=== PATIENT | female | born 1950 | race Two or more races ===

== ENCOUNTER 2019-08-28 12:48 | Day surgery (SDC) | payer OTHER ==
[2019-08-28 13:34] VITALS: BMI 35.5
[2019-08-28 14:30] VITALS: TEMP 97.9
[2019-08-28 15:16] VITALS: BP 147/65; PULSE 62
--- NOTE | 2019-08-30 16:42 | PATH ---
Surgical Pathology Report Patient Name: CHELSEY BOWSER [facility]. Rec. #: [id number] /Age/Gender: 1950 (Age: 69) / F Account: [id number] Location: [facility]-ENDOSCOPY Taken: 08/28/2019 Received: 08/29/2019 Reported: 08/30/2019 Physicians: Jay Jackson M.D. Specimen(s) Received CECAL POLYP Clinical History Colon polyp Postoperative diagnosis : diverticulosis, polyps Final Diagnosis CECAL POLYPS, POLYPECTOMY: TUBULAR ADENOMA, ONE FRAGMENT. SEPARATE FRAGMENTS OF COLONIC MUCOSA WITH REACTIVE LYMPHOID AGGREGATE. Electronically Signed Keaton Garcia M.D. Gross Description Received in formalin, labeled "cecal polyps" are 4 conklin, irregular portions of soft tissue measuring 0.2 to 0.5 cm. in greatest dimension. The specimen is submitted in toto in one cassette. RADHA/08/29/2019 kenzie/08/29/2019
== END 2019-08-28 15:16 | disposition home or self-care (01) ==
LOC: JASU-ENDO 12:48
PROVIDERS: ATTEND Internal Medicine Gastroenterology
PROC: 0DBH8ZX Excision of Cecum, Via Natural or Artificial Opening Endoscopic, Diagnostic (ICD-10-PCS; principal; 2019-08-28 13:30)
DX: Z86.010 Personal history of colon polyps (principal); D12.0 Benign neoplasm of cecum; K57.30 Diverticulosis of large intestine without perforation or abscess without bleeding; K64.8 Other hemorrhoids
CPT/HCPCS: 88305-TC

== ENCOUNTER 2019-10-09 13:40 | Day surgery (SDC) | payer OTHER ==
[2019-10-09 14:12] VITALS: TEMP 97.9; BMI 35.5
[2019-10-09 16:37] VITALS: BP 147/92; PULSE 72
--- NOTE | 2019-10-11 13:26 | PATH ---
Surgical Pathology Report Patient Name: ZOILA BOWSER [facility]. Rec. #: [id number] /Age/Gender: 1950 (Age: 69) / F Account: [id number] Location: [facility]-ENDOSCOPY Taken: 10/09/2019 Received: 10/10/2019 Reported: 10/11/2019 Physicians: Jay Jackson M.D. Specimen(s) Received CARDIA Clinical History Gastric intestinal metaplasia Postoperative diagnosis: Gastritis Final Diagnosis STOMACH, CARDIA, BIOPSY: GASTRIC CARDIAC TYPE MUCOSA WITH MODERATE CHRONIC GASTRITIS AND INTESTINAL METAPLASIA. NO DYSPLASIA IDENTIFIED. IMMUNOHISTOCHEMICAL STAIN FOR H. PYLORI IS NEGATIVE. Electronically Signed Zoila Lin M.D. Gross Description Received in formalin, labeled "biopsy cardia" are 2 conklin, irregular portions of soft tissue measuring 0.4 and 0.7 cm. in greatest dimension. The specimens are submitted in toto in one cassette. /10/10/2019 saudi10/10/2019
== END 2019-10-09 15:30 | disposition home or self-care (01) ==
LOC: JASU-ENDO 13:40
PROVIDERS: ATTEND Internal Medicine Gastroenterology
PROC: 0DB68ZX Excision of Stomach, Via Natural or Artificial Opening Endoscopic, Diagnostic (ICD-10-PCS; principal; 2019-10-09 14:00)
DX: Z98.84 Bariatric surgery status (principal); K29.50 Unspecified chronic gastritis without bleeding; K44.9 Diaphragmatic hernia without obstruction or gangrene; K31.89 Other diseases of stomach and duodenum; Z90.710 Acquired absence of both cervix and uterus
CPT/HCPCS: 88305-TC

== ENCOUNTER 2021-08-29 04:15 | Inpatient (IN) | payer OTHER ==
[2021-08-28 09:13] VITALS: BMI 34.0
[2021-08-29] MEDS ORDERED: BUPIVACAINE LIPOSOME/PF (EXPAREL) 266 MG/20 ML VIAL ONE (08:16)
[2021-08-29] MEDS ORDERED: BUPIVACAINE HCL/PF 0.5% (5MG/ML) 10 ML VIAL ONE (08:16)
[2021-08-29] MEDS ORDERED: MIDAZOLAM HCL 2 MG/2 ML SINGLE DOSE VIAL ONE ×3 (08:18→08:52)
[2021-08-29] MEDS ORDERED: ROCURONIUM BROMIDE 50 MG/5 ML SYRINGE ONE (08:52)
[2021-08-29] MEDS ORDERED: PROPOFOL 20 ML ONE ×2 (08:52)
[2021-08-29] MEDS ORDERED: ceFAZolin SODIUM 1 GM VIAL IVPB ONE (09:54)
[2021-08-29] MEDS ORDERED: DESFLURANE GAS 240 ML BOTTLE IH ONE (11:56)
[2021-08-29] MEDS ORDERED: METHYLENE BLUE 50 MG/10 ML AMPUL ONE (12:16)
[2021-08-29] MEDS ORDERED: NEOSTIGMINE METHYLSULFATE 0.5 MG/ML - 10 ML MDV ONE ×2 (14:32→14:59)
[2021-08-29] MEDS ORDERED: ALBUTEROL SO4 HFA INHALER IH PRN (14:38)
[2021-08-29] MEDS ORDERED: ACETAMINOPHEN 1000 MG/100 ML VIAL IVPB ONE (14:42)
[2021-08-29] MEDS ORDERED: LABETALOL HCL 5 MG/1 ML (100MG/20 ML VIAL) ONE (15:12)
[2021-08-29] MEDS ORDERED: oxyCODONE HCL 5 MG TABLET PO PRN (15:27)
[2021-08-29] MEDS ORDERED: LACTATED RINGERS SOLUTION 1,000 ML IV SCH (15:30)
[2021-08-29] MEDS ORDERED: ACETAMINOPHEN INJECTION 100 ML IVPB ONE (15:40)
[2021-08-29] MEDS: ACETAMINOPHEN 500 MG TABLET (FP) PO SCH ×2 (15:45→21:10)
[2021-08-29] MEDS ORDERED: cefTRIAXone SODIUM 1 GM VIAL IVPB ONE (16:30)
[2021-08-29 17:49] LABS: EPI CELLS 21 /uL (0-25.1); HYALINE CASTS 2 /uL (0-3.1); PH,URINE 5.5 (5.0-8.0); URINE APPEARANCE CLEAR; URINE BACTERIA 13 /uL (0-1359); URINE BILIRUBIN NEGATIVE (NEGATIVE); URINE COLOR YELLOW; URINE GLUCOSE (UA) NEGATIVE (NEGATIVE); URINE KETONE NEGATIVE (NEGATIVE); URINE LEUK ESTERASE TRACE (NEGATIVE); URINE NITRITE NEGATIVE (NEGATIVE); URINE PROTEIN NEGATIVE (NEGATIVE); URINE RBC 315 /uL (0-23.9); URINE UROBILINOGEN 0.2 mg/dL (0.2-1.0); URINE WBC 23 /uL (0-25.8)
[2021-08-29] MEDS: CEFTRIAXONE 1 GM in DEXTROSE 5%-WATER - 50 ML IVPB SCH (19:35)
[2021-08-29] MEDS: NITROFURANTOIN MACROCRYSTAL 50 MG CAPSULE (FP) PO SCH (21:10)
[2021-08-29] MEDS: ZOLPIDEM TARTRATE 5 MG TABLET PO PRN ×2 (22:20→22:50)
[2021-08-29] MEDS: oxyCODONE HCL 5 MG TABLET PO PRN (22:45)
[2021-08-30] MEDS: ACETAMINOPHEN 500 MG TABLET (FP) PO SCH ×4 (04:25→21:30)
[2021-08-30] MEDS ORDERED: cefTRIAXone SODIUM 1 GM VIAL ONE (09:10)
[2021-08-30] MEDS ORDERED: DEXTROSE 5%-WATER - 50 ML IVPB ONE (09:10)
[2021-08-30] MEDS: MECLIZINE HCL 12.5 MG TABLET PO SCH ×2 (09:30→09:41)
[2021-08-30] MEDS: NITROFURANTOIN MACROCRYSTAL 50 MG CAPSULE (FP) PO SCH ×3 (09:40→19:31)
[2021-08-30] MEDS: CEFTRIAXONE 1 GM in DEXTROSE 5%-WATER - 50 ML IVPB SCH (09:41)
[2021-08-30] MEDS ORDERED: busPIRone HCL 10 MG TABLET (FP) PO SCH (10:00)
[2021-08-30] MEDS ORDERED: PATIENT'S OWN MEDICATION (NON-FORMULARY) (Linaclotide [Linzess] 145 MCG Capsule) PO SCH (10:00)
[2021-08-30] MEDS ORDERED: ASPIRIN 81 MG CHEWABLE TABLETS PO SCH (10:00)
[2021-08-30] MEDS ORDERED: LOSARTAN POTASSIUM 50 MG TABLET PO SCH (10:00)
[2021-08-30] MEDS ORDERED: CYANOCOBALAMIN 1,000 MCG TABLET (FP) PO SCH (10:00)
[2021-08-30] MEDS ORDERED: PATIENT'S OWN MEDICATION (NON-FORMULARY) (Mirabegron [Myrbetriq] 25 MG Tab.Er.24h) PO SCH (10:00)
[2021-08-30] MEDS ORDERED: PANTOPRAZOLE 20 MG TABLET PO SCH (10:00)
[2021-08-30] MEDS ORDERED: LACTATED RINGERS SOLUTION 1,000 ML IV SCH (12:04)
[2021-08-30 16:10] LABS: BASO % 0.7 % (0-2.0); HEMATOCRIT 27.1 % (32.4-45.2); HEMOGLOBIN 8.7 GM/dL (10.7-15.3); LYMPH % 34.1 % (8-40); MCH 24.7 pg (25.7-33.7); MCHC 32.2 g/dl (32.0-36.0); MEAN CELL VOLUME 76.8 fl (80-96); MEAN PLT VOLUME 8.6 fl (7.5-11.1); MONO % 6.9 % (3.8-10.2); NEUT % 57.3 % (42.8-82.8); PLATELET COUNT 203 10^3/uL (134-434); RBC 3.53 M/mm3 (3.60-5.2); WHITE BLOOD COUNT 9.2 K/mm3 (4.0-10.0)
[2021-08-30 16:41] LABS: CALCIUM 8.7 mg/dL (8.5-10.1)
[2021-08-30 16:42] LABS: ALBUMIN 2.8 g/dl (3.4-5.0); BLOOD UREA NITROGEN 9.6 mg/dL (7-18); CO2 30 mmol/L (21-32); GLUCOSE,RANDOM 84 mg/dL (74-106)
[2021-08-30 16:45] LABS: SGOT/AST 18 U/L (15-37); SGPT/ALT 14 U/L (13-61)
[2021-08-30 16:47] LABS: BILIRUBIN,TOTAL 0.4 mg/dL (0.2-1)
[2021-08-30 16:48] LABS: ALK PHOS 85 U/L (45-117)
[2021-08-30 16:49] LABS: ANION GAP 3 MMOL/L (8-16); CHLORIDE 111 mmol/L (98-107); SODIUM 144 mmol/L (136-145)
[2021-08-30] MEDS ORDERED: CYCLOBENZAPRINE HCL 5 MG TABLET PO ONE (17:04)
[2021-08-30] MEDS ORDERED: LORazepam 2 MG/ML SDV VIAL IVPUSH PRN (17:04)
[2021-08-30 17:26] LABS: MAGNESIUM 1.8 mg/dL (1.8-2.4)
[2021-08-30 17:29] LABS: PHOSPHOROUS 3.2 mg/dL (2.5-4.9)
[2021-08-30] MEDS: MUPIROCIN 2% TOPICAL OINTMENT FOR DECOLONIZATION NS SCH (21:31)
[2021-08-30] MEDS: oxyCODONE HCL 5 MG TABLET PO PRN (21:31)
[2021-08-30] MEDS: ZOLPIDEM TARTRATE 5 MG TABLET PO PRN (21:31)
[2021-08-30] MEDS ORDERED: CHLORHEXIDINE GLUCONATE 4% CLEANSER FOR DECOLONIZATION TP SCH (22:00)
[2021-08-30] MEDS ORDERED: ACETAMINOPHEN 500 MG TABLET (FP) PO PRN (23:13)
[2021-08-30 23:16] LABS: BASO % 1.4 % (0-2.0); EOS % 1.5 % (0-4.5); HEMATOCRIT 28.6 % (32.4-45.2); HEMOGLOBIN 9.2 GM/dL (10.7-15.3); LYMPH % 32.5 % (8-40); MCH 24.5 pg (25.7-33.7); MCHC 32.2 g/dl (32.0-36.0); MEAN CELL VOLUME 76.2 fl (80-96); MEAN PLT VOLUME 8.1 fl (7.5-11.1); MONO % 7.1 % (3.8-10.2); NEUT % 57.5 % (42.8-82.8); PLATELET COUNT 214 10^3/uL (134-434); RBC 3.75 M/mm3 (3.60-5.2); RDW 17.1 % (11.6-15.6); WHITE BLOOD COUNT 7.6 K/mm3 (4.0-10.0)
[2021-08-30 23:22] LABS: INR 1.1 (0.83-1.09); PROTHROMBIN TIME (PATIENT) 13.3 SEC (9.7-13.0)
[2021-08-30 23:24] LABS: ACTIVATED PTT 23.3 SECONDS (25.2-36.5)
[2021-08-30 23:34] LABS: CHLORIDE 111 mmol/L (98-107); SODIUM 144 mmol/L (136-145)
[2021-08-30 23:36] LABS: ALBUMIN 2.8 g/dl (3.4-5.0); ANION GAP 3 MMOL/L (8-16); CALCIUM 8.5 mg/dL (8.5-10.1); CO2 29 mmol/L (21-32); GLUCOSE,RANDOM 92 mg/dL (74-106); MAGNESIUM 1.9 mg/dL (1.8-2.4)
[2021-08-30 23:39] LABS: PHOSPHOROUS 3.3 mg/dL (2.5-4.9); SGPT/ALT 20 U/L (13-61)
[2021-08-30 23:40] LABS: SGOT/AST 27 U/L (15-37)
[2021-08-30 23:41] LABS: BILIRUBIN,TOTAL 0.3 mg/dL (0.2-1); TOT PROT 6.3 g/dl (6.4-8.2)
[2021-08-30 23:42] LABS: ALK PHOS 92 U/L (45-117)
[2021-08-31] MEDS: NITROFURANTOIN MACROCRYSTAL 50 MG CAPSULE (FP) PO SCH ×4 (00:09→18:33)
[2021-08-31] MEDS ORDERED: PT OWN MED DRAWER 7, Y5N ONE (09:06)
[2021-08-31] MEDS: MUPIROCIN 2% TOPICAL OINTMENT FOR DECOLONIZATION NS SCH (09:23)
[2021-08-31] MEDS ORDERED: ASPIRIN COATED 81 MG TABLET.EC PO SCH (10:00)
[2021-08-31] MEDS ORDERED: LOSARTAN POTASSIUM 50 MG TABLET PO SCH (10:00)
[2021-08-31] MEDS ORDERED: PANTOPRAZOLE 20 MG TABLET PO SCH (10:00)
[2021-08-31] MEDS ORDERED: CYANOCOBALAMIN 1,000 MCG TABLET (FP) PO SCH (10:00)
[2021-08-31 16:40] LABS: BASO % 0.7 % (0-2.0); EOS % 1.5 % (0-4.5); HEMOGLOBIN 9.7 GM/dL (10.7-15.3); LYMPH % 28.4 % (8-40); MCH 24.9 pg (25.7-33.7); MCHC 32.2 g/dl (32.0-36.0); MEAN CELL VOLUME 77.3 fl (80-96); MEAN PLT VOLUME 9.1 fl (7.5-11.1); NEUT % 63.4 % (42.8-82.8); PLATELET COUNT 220 10^3/uL (134-434); RBC 3.89 M/mm3 (3.60-5.2); RDW 17.2 % (11.6-15.6); WHITE BLOOD COUNT 7.8 K/mm3 (4.0-10.0)
[2021-08-31] MEDS ORDERED: LORazepam 2 MG/ML SDV VIAL IVPUSH PRN (16:50)
[2021-08-31 17:06] LABS: CALCIUM 8.7 mg/dL (8.5-10.1)
[2021-08-31 17:07] LABS: ALBUMIN 2.7 g/dl (3.4-5.0); BLOOD UREA NITROGEN 9.9 mg/dL (7-18); MAGNESIUM 1.8 mg/dL (1.8-2.4)
[2021-08-31 17:12] LABS: BILIRUBIN,TOTAL 0.3 mg/dL (0.2-1); TOT PROT 6.3 g/dl (6.4-8.2)
[2021-08-31] MEDS ORDERED: ZOLPIDEM TARTRATE 5 MG TABLET PO ONE (21:46)
[2021-08-31] MEDS: ACETAMINOPHEN 500 MG TABLET (FP) PO PRN ×2 (22:17→22:42)
[2021-09-01] MEDS: NITROFURANTOIN MACROCRYSTAL 50 MG CAPSULE (FP) PO SCH ×2 (00:13→05:44)
[2021-09-01] MEDS: ACETAMINOPHEN 500 MG TABLET (FP) PO PRN ×2 (10:43→17:10)
[2021-09-01] MEDS: CYANOCOBALAMIN 1,000 MCG TABLET (FP) PO SCH (10:43)
[2021-09-01] MEDS: PANTOPRAZOLE 20 MG TABLET PO SCH (10:43)
[2021-09-01] MEDS: LOSARTAN POTASSIUM 50 MG TABLET PO SCH (10:43)
[2021-09-01] MEDS: ASPIRIN COATED 81 MG TABLET.EC PO SCH (10:43)
[2021-09-01] MEDS: CEPHALEXIN MONOHYDRATE 500 MG CAPSULE (UD) PO SCH ×2 (14:31→21:30)
[2021-09-01] MEDS: DOCUSATE SODIUM 100 MG CAPSULE (FP) PO SCH ×2 (14:31→21:30)
[2021-09-01] MEDS ORDERED: oxyCODONE HCL 5 MG TABLET PO ONE (20:00)
[2021-09-01] MEDS ORDERED: ACETAMINOPHEN 325 MG TABLET (FP) PO ONE (20:00)
[2021-09-01] MEDS ORDERED: ZOLPIDEM TARTRATE 5 MG TABLET PO ONE (23:32)
[2021-09-02] MEDS: CEPHALEXIN MONOHYDRATE 500 MG CAPSULE (UD) PO SCH ×2 (06:02→14:20)
[2021-09-02] MEDS: DOCUSATE SODIUM 100 MG CAPSULE (FP) PO SCH ×2 (06:02→14:20)
[2021-09-02] MEDS ORDERED: PT OWN MED DRAWER 7, Y5N ONE (08:08)
[2021-09-02] MEDS ORDERED: ENOXAPARIN NA (PORCINE) 40 MG/0.4 ML DISP.SYRIN SQ SCH (10:00)
[2021-09-02] MEDS ORDERED: ESCITALOPRAM OXALATE 10 MG TABLET PO SCH (10:00)
[2021-09-02] MEDS: CYANOCOBALAMIN 1,000 MCG TABLET (FP) PO SCH (10:07)
[2021-09-02] MEDS: ASPIRIN COATED 81 MG TABLET.EC PO SCH (10:08)
[2021-09-02] MEDS: PANTOPRAZOLE 20 MG TABLET PO SCH (10:08)
[2021-09-02] MEDS: LOSARTAN POTASSIUM 50 MG TABLET PO SCH (10:12)
[2021-09-02] MEDS: ACETAMINOPHEN 500 MG TABLET (FP) PO PRN (14:21)
[2021-09-02] MEDS ORDERED: NAPROXEN 500 MG TABLET PO ONE (14:57)
[2021-09-02 18:36] VITALS: BP 116/52; PULSE 80; TEMP 98
== END 2021-09-02 19:21 | disposition home or self-care (01) | DRG 908 ==
LOC: JASU-SURG 04:15 → JASUSAT 04:15 → UNDOADMIN 14:23 → J2C 14:23 → J6S 14:23 → JICU 08-30 19:51 → J5S 08-31 18:03
PROVIDERS: ADMIT Surgery; ATTEND Family Medicine
PROC: 0WQF4ZZ Repair Abdominal Wall, Percutaneous Endoscopic Approach (ICD-10-PCS; 2021-08-29)
PROC: 8E0W4CZ Robotic Assisted Procedure of Trunk Region, Percutaneous Endoscopic Approach (ICD-10-PCS; 2021-08-29)
PROC: 0TQB3ZZ Repair Bladder, Percutaneous Approach (ICD-10-PCS; principal; 2021-08-29 09:00)
DX: N99.72 Accidental puncture and laceration of a genitourinary system organ or structure during other procedure (principal); K43.0 Incisional hernia with obstruction, without gangrene; I10 Essential (primary) hypertension; R25.1 Tremor, unspecified; B96.1 Klebsiella pneumoniae [K. pneumoniae] as the cause of diseases classified elsewhere; F41.8 Other specified anxiety disorders; K21.9 Gastro-esophageal reflux disease without esophagitis; Y83.9 Surgical procedure, unspecified as the cause of abnormal reaction of the patient, or of later complication, without mention of misadventure at the time of the procedure
CPT/HCPCS: 36415; 70450-TC; 71045-TC-FY; 74019-TC-FY; 80053; 81003; 82550; 82553; 82607; 82962; 83605; 83735; 84100; 84443; 84484; 85025; 85610; 85651; 85730; 86140; 86850; 86900; 86901; 87040; 87086; 93005; 93010; 94010; 94760; 97116-GP; 97162-GP; J0131; Q9968

== ENCOUNTER → 2021-09-12 | Day surgery (SDC) | payer OTHER | END | disposition home or self-care (01) | LOC: JRADANG 09:28 | PROVIDERS: ATTEND Surgery | PROC: BT00YZZ Plain Radiography of Bladder using Other Contrast (ICD-10-PCS; principal; 2021-09-12) | DX: N32.89 Other specified disorders of bladder (principal) | CPT/HCPCS: 51600; 51701 ==

== ENCOUNTER 2022-09-03 13:59 | Emergency (ER) | payer OTHER ==
[2022-09-03 14:43] VITALS: PULSE 84; TEMP 98.2; BMI 31.8
[2022-09-03 18:59] LABS: CALCIUM 9.4 mg/dL (8.5-10.1)
[2022-09-03 19:00] LABS: ALBUMIN 3.7 g/dl (3.4-5.0); BLOOD UREA NITROGEN 14.4 mg/dL (7-18)
[2022-09-03 19:02] LABS: CREATININE 1.4 mg/dL (0.55-1.3)
[2022-09-03 19:03] LABS: BILIRUBIN,TOTAL 0.6 mg/dL (0.2-1); TOT PROT 7.3 g/dl (6.4-8.2)
[2022-09-03 19:12] LABS: ACTIVATED PTT 28.7 SECONDS (25.2-36.5); INR 1.1 (0.83-1.09); PROTHROMBIN TIME (PATIENT) 12.7 SEC (9.7-13.0)
[2022-09-03 19:30] LABS: BASO % 0.6 % (0-2.0); EOS % 1.6 % (0-4.5); HEMATOCRIT 34.1 % (32.4-45.2); HEMOGLOBIN 10.6 GM/dL (10.7-15.3); LYMPH % 28.1 % (8-40); MCH 23.7 pg (25.7-33.7); MCHC 31.1 g/dl (32.0-36.0); MEAN CELL VOLUME 76.1 fl (80-96); MEAN PLT VOLUME 8.2 fl (7.5-11.1); NEUT % 62.7 % (42.8-82.8); PLATELET COUNT 261 10^3/uL (134-434); RBC 4.48 M/mm3 (3.60-5.2); RDW 17.9 % (11.6-15.6); WHITE BLOOD COUNT 8.1 K/mm3 (4.0-10.0)
[2022-09-03 20:06] VITALS: BP 163/52; RESP 20
[2022-09-03] MEDS ORDERED: ACETAMINOPHEN 1000 MG/100 ML BAG IVPB ONE (20:55)
[2022-09-03] MEDS ORDERED: SODIUM CHLORIDE 0.9% 500 ML INFUS.BAG IV ONE (20:55)
[2022-09-03] MEDS ORDERED: ACETAMINOPHEN INJECTION 100 ML IVPB ONE (21:42)
== END 2022-09-03 23:45 | disposition home or self-care (01) ==
LOC: JER 13:59
PROC: 3E0333Z Introduction of Anti-inflammatory into Peripheral Vein, Percutaneous Approach (ICD-10-PCS; principal; 2022-09-03)
DX: R07.9 Chest pain, unspecified (principal)
CPT/HCPCS: 0241U-QW; 36415; 71045-TC-FY; 80053; 84484; 85025; 85610; 85730; 93005; 93010; 96374; 99284-25

== ENCOUNTER 2023-03-29 00:38 | Inpatient (IN) | payer OTHER ==
[2023-03-29 01:47] LABS: BASO % 1.5 % (0-2.0); EOS % 2.1 % (0-4.5); HEMATOCRIT 35.5 % (32.4-45.2); HEMOGLOBIN 11.3 GM/dL (10.7-15.3); LYMPH % 39.1 % (8-40); MCH 26.2 pg (25.7-33.7); MCHC 31.8 g/dl (32.0-36.0); MEAN CELL VOLUME 82.4 fl (80-96); MEAN PLT VOLUME 8.2 fl (7.5-11.1); MONO % 6.9 % (3.8-10.2); NEUT % 50.4 % (42.8-82.8); PLATELET COUNT 272 10^3/uL (134-434); RDW 18.3 % (11.6-15.6); WHITE BLOOD COUNT 9.2 K/mm3 (4.0-10.0)
[2023-03-29 01:54] LABS: INR 1.17 (0.83-1.09); PROTHROMBIN TIME (PATIENT) 13.6 SEC (9.7-13.0)
[2023-03-29 01:57] LABS: ACTIVATED PTT 30.1 SECONDS (25.2-36.5)
[2023-03-29 02:06] LABS: POTASSIUM 4.6 mmol/L (3.5-5.1)
[2023-03-29 02:09] LABS: ALBUMIN 3.5 g/dl (3.4-5.0); BLOOD UREA NITROGEN 27.5 mg/dL (7-18)
[2023-03-29 02:12] LABS: CREATININE 0.9 mg/dL (0.55-1.3)
[2023-03-29 02:13] LABS: BILIRUBIN,TOTAL 0.4 mg/dL (0.2-1)
[2023-03-29] MEDS ORDERED: ZOLPIDEM TARTRATE 5 MG TABLET PO ONE ×4 (02:27→21:45)
[2023-03-29 04:09] LABS: EOS % 2.4 % (0-4.5); HEMATOCRIT 33.3 % (32.4-45.2); HEMOGLOBIN 10.8 GM/dL (10.7-15.3); LYMPH % 43.5 % (8-40); MCH 26.7 pg (25.7-33.7); MCHC 32.3 g/dl (32.0-36.0); MEAN CELL VOLUME 82.6 fl (80-96); MEAN PLT VOLUME 8.2 fl (7.5-11.1); MONO % 7.6 % (3.8-10.2); NEUT % 45.5 % (42.8-82.8); PLATELET COUNT 255 10^3/uL (134-434); RBC 4.03 M/mm3 (3.60-5.2); RDW 18.2 % (11.6-15.6); WHITE BLOOD COUNT 6.4 K/mm3 (4.0-10.0)
[2023-03-29] MEDS ORDERED: ZOLPIDEM TARTRATE 5 MG TABLET ONE (04:16)
[2023-03-29] MEDS: DEXTROSE 5%-0.45% SALINE 1,000 ML IV SCH (06:51)
[2023-03-29] MEDS ORDERED: PANTOPRAZOLE SODIUM 40 MG/100 ML BAG IVPB ONE (11:04)
[2023-03-29] MEDS: PANTOPRAZOLE SODIUM 40 MG VIAL IVPUSH SCH (11:07)
[2023-03-29 17:04] VITALS: BMI 31.4
[2023-03-29 17:42] LABS: PH,URINE 6.5 (5.0-8.0); URINE APPEARANCE CLEAR; URINE BILIRUBIN NEGATIVE (NEGATIVE); URINE COLOR YELLOW; URINE GLUCOSE (UA) NEGATIVE (NEGATIVE); URINE KETONE NEGATIVE (NEGATIVE); URINE LEUK ESTERASE NEGATIVE (NEGATIVE); URINE NITRITE NEGATIVE (NEGATIVE); URINE PROTEIN NEGATIVE (NEGATIVE); URINE UROBILINOGEN 0.2 mg/dL (0.2-1.0)
[2023-03-30] MEDS: DEXTROSE 5%-0.45% SALINE 1,000 ML IV SCH ×2 (05:00→16:20)
[2023-03-30 07:07] LABS: HEMOGLOBIN 10.3 GM/dL (10.7-15.3); MCH 27.1 pg (25.7-33.7); MCHC 33.2 g/dl (32.0-36.0); MEAN CELL VOLUME 81.6 fl (80-96); MEAN PLT VOLUME 8.8 fl (7.5-11.1); PLATELET COUNT 240 10^3/uL (134-434); RDW 17.9 % (11.6-15.6); WHITE BLOOD COUNT 5.9 K/mm3 (4.0-10.0)
[2023-03-30 07:25] LABS: POTASSIUM 4.3 mmol/L (3.5-5.1)
[2023-03-30 07:29] LABS: CALCIUM 8.7 mg/dL (8.5-10.1)
[2023-03-30 07:30] LABS: BLOOD UREA NITROGEN 12.3 mg/dL (7-18); MAGNESIUM 1.9 mg/dL (1.8-2.4)
[2023-03-30 07:32] LABS: CREATININE 0.9 mg/dL (0.55-1.3)
[2023-03-30 07:34] LABS: BILIRUBIN,TOTAL 0.9 mg/dL (0.2-1); TOT PROT 6.2 g/dl (6.4-8.2)
[2023-03-30] MEDS: PANTOPRAZOLE SODIUM 40 MG VIAL IVPUSH SCH (09:45)
[2023-03-30 17:32] LABS: N-TERMINAL BNP 68.7 pg/ml (5-125)
[2023-03-30] MEDS: ZOLPIDEM TARTRATE 5 MG TABLET PO PRN (21:40)
[2023-03-31 06:49] LABS: BASO % 0.9 % (0-2.0); EOS % 2.9 % (0-4.5); HEMATOCRIT 29.5 % (32.4-45.2); HEMOGLOBIN 9.8 GM/dL (10.7-15.3); LYMPH % 47.7 % (8-40); MCH 27.4 pg (25.7-33.7); MCHC 33.2 g/dl (32.0-36.0); MEAN CELL VOLUME 82.6 fl (80-96); MEAN PLT VOLUME 8.8 fl (7.5-11.1); MONO % 7.7 % (3.8-10.2); NEUT % 40.8 % (42.8-82.8); PLATELET COUNT 245 10^3/uL (134-434); RBC 3.57 M/mm3 (3.60-5.2); RDW 17.7 % (11.6-15.6); WHITE BLOOD COUNT 5.2 K/mm3 (4.0-10.0)
[2023-03-31 07:08] LABS: POTASSIUM 4.7 mmol/L (3.5-5.1)
[2023-03-31 07:13] LABS: CALCIUM 8.5 mg/dL (8.5-10.1)
[2023-03-31 07:14] LABS: BLOOD UREA NITROGEN 8.3 mg/dL (7-18)
[2023-03-31 07:16] LABS: CREATININE 0.9 mg/dL (0.55-1.3)
[2023-03-31 07:18] LABS: BILIRUBIN,TOTAL 0.5 mg/dL (0.2-1); TOT PROT 6.1 g/dl (6.4-8.2)
[2023-03-31] MEDS ORDERED: BISACODYL 5 MG TABLET.DR (FP) PO ONE ×2 (08:20→14:00)
[2023-03-31] MEDS ORDERED: PEG 3350/NA SULF BICARB CL/KCL 4000 ML SOLN.RECON PO ONE ×3 (10:00→14:00)
[2023-03-31] MEDS: PANTOPRAZOLE SODIUM 40 MG VIAL IVPUSH SCH (10:30)
[2023-03-31] MEDS: DEXTROSE 5%-0.45% SALINE 1,000 ML IV SCH (13:58)
[2023-03-31 17:13] LABS: BASO % 0.8 % (0-2.0); EOS % 1.2 % (0-4.5); HEMATOCRIT 32.6 % (32.4-45.2); HEMOGLOBIN 10.4 GM/dL (10.7-15.3); LYMPH % 28.8 % (8-40); MCH 26.6 pg (25.7-33.7); MCHC 31.9 g/dl (32.0-36.0); MEAN CELL VOLUME 83.3 fl (80-96); MEAN PLT VOLUME 8.4 fl (7.5-11.1); NEUT % 63.2 % (42.8-82.8); PLATELET COUNT 251 10^3/uL (134-434); RBC 3.91 M/mm3 (3.60-5.2); RDW 18.2 % (11.6-15.6); WHITE BLOOD COUNT 7.3 K/mm3 (4.0-10.0)
[2023-03-31] MEDS: ZOLPIDEM TARTRATE 5 MG TABLET PO PRN (22:12)
[2023-04-01] MEDS ORDERED: EPINEPHrine 1:10,000 (P-F SYR) 1 MG/10 ML DISP.SYRIN ONE (07:24)
[2023-04-01 07:34] LABS: BASO % 1.2 % (0-2.0); EOS % 1.9 % (0-4.5); HEMATOCRIT 32.5 % (32.4-45.2); HEMOGLOBIN 10.8 GM/dL (10.7-15.3); LYMPH % 49.2 % (8-40); MCH 27.4 pg (25.7-33.7); MCHC 33.1 g/dl (32.0-36.0); MEAN CELL VOLUME 82.7 fl (80-96); MEAN PLT VOLUME 9.1 fl (7.5-11.1); MONO % 6.8 % (3.8-10.2); NEUT % 40.9 % (42.8-82.8); PLATELET COUNT 261 10^3/uL (134-434); RBC 3.93 M/mm3 (3.60-5.2); RDW 17.6 % (11.6-15.6); WHITE BLOOD COUNT 6.2 K/mm3 (4.0-10.0)
[2023-04-01 08:26] VITALS: RESP 13
[2023-04-01] MEDS: PANTOPRAZOLE SODIUM 40 MG VIAL IVPUSH SCH (10:08)
[2023-04-01 15:59] VITALS: BP 105/67; PULSE 80; TEMP 98.6
== END 2023-04-01 17:39 | disposition home or self-care (01) | DRG 392 ==
LOC: JER 00:38 → JERBED 04:49 → J4W 15:45
PROVIDERS: ADMIT Family Medicine; ATTEND Family Medicine
PROC: 0DJD8ZZ Inspection of Lower Intestinal Tract, Via Natural or Artificial Opening Endoscopic (ICD-10-PCS; principal; 2023-04-01 07:30)
DX: K57.30 Diverticulosis of large intestine without perforation or abscess without bleeding (principal); I10 Essential (primary) hypertension; K21.9 Gastro-esophageal reflux disease without esophagitis; J45.909 Unspecified asthma, uncomplicated; F41.8 Other specified anxiety disorders; K64.8 Other hemorrhoids; K44.9 Diaphragmatic hernia without obstruction or gangrene; K29.60 Other gastritis without bleeding; K80.80 Other cholelithiasis without obstruction; K31.A0 Gastric intestinal metaplasia, unspecified; Z98.84 Bariatric surgery status; E66.9 Obesity, unspecified; Z68.31 Body mass index [BMI] 31.0-31.9, adult; D64.9 Anemia, unspecified
CPT/HCPCS: 36415; 74177-TC; 80053; 80061; 81003; 82728; 83036; 83540; 83550; 83735; 83880; 84443; 85025; 85027; 85610; 85730; 86850; 86900; 86901; 93005; 93010; 93306-TC; 99285-25; C9803-CS; Q9967; U0003; U0005

== ENCOUNTER → 2023-05-04 | Day surgery (SDC) | payer OTHER ==
[2023-04-30 14:10] VITALS: BMI 31.1
[2023-05-04 14:08] VITALS: TEMP 97
[2023-05-04 14:21] VITALS: RESP 20
[2023-05-04 14:33] VITALS: BP 127/79; PULSE 63
== END | disposition home or self-care (01) ==
LOC: JASU-ENDO 05:10
PROVIDERS: ATTEND Student in an Organized Health Care Education/Training Program
PROC: 0DB68ZX Excision of Stomach, Via Natural or Artificial Opening Endoscopic, Diagnostic (ICD-10-PCS; 2023-05-04)
PROC: 0DB48ZX Excision of Esophagogastric Junction, Via Natural or Artificial Opening Endoscopic, Diagnostic (ICD-10-PCS; principal; 2023-05-04 12:00)
DX: K20.90 Esophagitis, unspecified without bleeding (principal); K29.50 Unspecified chronic gastritis without bleeding; Z98.0 Intestinal bypass and anastomosis status
CPT/HCPCS: 88305-TC; 88342-TC

== ENCOUNTER 2024-09-14 04:34 | Day surgery (SDC) | payer OTHER ==
[2024-09-12 12:10] VITALS: BMI 31.2
[2024-09-14] MEDS ORDERED: DEXAMETHASONE SOD PHOSPHATE 10 MG/1 ML VIAL ONE (07:13)
[2024-09-14] MEDS ORDERED: LIDOCAINE HCL/PF 1% SDV 5ML VIAL ONE (07:13)
[2024-09-14 08:51] VITALS: RESP 20
[2024-09-14] MEDS ORDERED: ACETAMINOPHEN 500 MG TABLET (FP) PO PRN (09:27)
[2024-09-14] MEDS: LIDOCAINE 1% P/F 10 MG/ML VIAL INF ONE ×3 (12:12)
[2024-09-14] MEDS: IOHEXOL 180 MG/1 ML ML IJ ONE ×3 (12:13)
[2024-09-14] MEDS: DEXAMETHASONE SOD PHOSPHATE 10 MG/1 ML VIAL IVPUSH ONE ×3 (12:14)
[2024-09-14 13:34] VITALS: BP 143/92; PULSE 82; TEMP 97.3
== END 2024-09-14 16:34 | disposition home or self-care (01) ==
LOC: JASU-SURG 04:34
PROVIDERS: ATTEND Pain Medicine Pain Medicine
PROC: 3E0R3BZ Introduction of Anesthetic Agent into Spinal Canal, Percutaneous Approach (ICD-10-PCS; 2024-09-14)
PROC: 3E0R33Z Introduction of Anti-inflammatory into Spinal Canal, Percutaneous Approach (ICD-10-PCS; principal; 2024-09-14 11:15)
DX: M54.16 Radiculopathy, lumbar region (principal); M48.061 Spinal stenosis, lumbar region without neurogenic claudication
CPT/HCPCS: 76000-TC-FY; J1100

== ENCOUNTER 2024-10-13 04:31 | Day surgery (SDC) | payer OTHER ==
[2024-10-12 15:58] VITALS: BMI 31.4
[2024-10-13] MEDS ORDERED: ACETAMINOPHEN 500 MG TABLET (FP) PO PRN (08:45)
[2024-10-13 09:28] VITALS: RESP 20
[2024-10-13] MEDS: BUPIVACAINE HCL/PF 0.5% (5MG/ML) 10 ML VIAL IJ ONE ×2 (10:32)
[2024-10-13] MEDS: TRIAMCINOLONE ACETONIDE 40 MG/ML 10 ML VIAL IJ ONE (10:33)
[2024-10-13] MEDS: LIDOCAINE 1% P/F 10 MG/ML VIAL INF ONE (10:35)
[2024-10-13] MEDS: IOHEXOL 180 MG/1 ML ML IJ ONE ×2 (10:36)
[2024-10-13 11:20] VITALS: BP 143/91; PULSE 65; TEMP 97.1
== END 2024-10-13 12:00 | disposition home or self-care (01) ==
LOC: JASU-SURG 04:31
PROVIDERS: ATTEND Pain Medicine Pain Medicine
PROC: 3E0U3BZ Introduction of Anesthetic Agent into Joints, Percutaneous Approach (ICD-10-PCS; 2024-10-13)
PROC: 3E0U33Z Introduction of Anti-inflammatory into Joints, Percutaneous Approach (ICD-10-PCS; principal; 2024-10-13 10:15)
DX: M53.3 Sacrococcygeal disorders, not elsewhere classified (principal)
CPT/HCPCS: 76000-TC-FY

== ENCOUNTER 2025-07-13 06:04 | Day surgery (SDC) | payer OTHER ==
[2025-07-11 12:55] VITALS: BMI 27.8
[2025-07-13 08:43] VITALS: RESP 18
[2025-07-13] MEDS ORDERED: ACETAMINOPHEN 500 MG TABLET (FP) PO PRN (08:54)
[2025-07-13] MEDS: LIDOCAINE HCL 1% PRESERVATIVE FREE - 30ML VIAL IJ ONE (10:16)
[2025-07-13] MEDS: IOHEXOL 180 MG/1 ML ML IJ ONE (10:17)
[2025-07-13] MEDS: BUPIVACAINE HCL/PF 0.5% (5MG/ML) 10 ML VIAL IJ ONE (10:18)
[2025-07-13 11:02] VITALS: BP 136/77; PULSE 66; TEMP 97
== END 2025-07-13 12:00 | disposition home or self-care (01) ==
LOC: JASU-SURG 06:04
PROVIDERS: ATTEND Pain Medicine Pain Medicine
PROC: 3E0U3BZ Introduction of Anesthetic Agent into Joints, Percutaneous Approach (ICD-10-PCS; 2025-07-13)
PROC: 3E0U33Z Introduction of Anti-inflammatory into Joints, Percutaneous Approach (ICD-10-PCS; principal; 2025-07-13 10:45)
DX: M53.3 Sacrococcygeal disorders, not elsewhere classified (principal)
CPT/HCPCS: 76000-TC-FY